=== PATIENT | male | born 1980 | race Caucasian/White ===

== ENCOUNTER → 2017-08-20 08:50 | Outpatient (CLI) | payer OTHER, SELFPAY ==
--- NOTE | 2017-08-20 | DI.US.S_ITS ---
PROCEDURE: US ABDOMEN COMPLETE INDICATIONS: RIGHT UPPER QUADRANT PAIN TECHNIQUE: Real-time scanning was performed of the abdominal and retroperitoneal organs, with image documentation. COMPARISON: None. FINDINGS: Liver: Liver is normal in size and homogeneous in echotexture. Liver has a diffusely increased echotexture which typically represents fatty infiltration; however, finding is nonspecific and other etiologies including hepatic cirrhosis can have a similar appearance. Please correlate with clinical and laboratory findings. Gallbladder: Several small mobile gallstones are noted. No gallbladder wall thickening. No pericholecystic fluid. No sonographic Gutierrez sign. Biliary ducts: Intrahepatic bile ducts are non-dilated. Extrahepatic bile duct caliber measures 5.4 mm. Normal is 6-7 mm or less in diameter, or 10 mm or less post-cholecystectomy. Pancreas: Visualized portions of the pancreas are sonographically normal. Spleen: Spleen is normal in size and homogeneous in echotexture. Kidneys: Kidneys are normal in size and echotexture. Right kidney measures 11.6 cm long; left kidney measures 11.6 cm long. No hydronephrosis or nephrolithiasis. No solid masses. Aorta: Visualized aorta is normal in caliber at less than 3 cm. Iliacs: Proximal common iliac arteries are normal in caliber at less than 2.5 cm. IVC: Intrahepatic inferior vena cava is patent. Miscellaneous: No free abdominal fluid. IMPRESSION: Cholelithiasis without sonographic evidence of cholecystitis. Dictated by: Vanesa Pryor MD, PhD on 08/20/2017 at 9:41 Approved by: Vanesa Pryor MD, PhD on 08/20/2017 at 9:42
== END ==
PROVIDERS: PCP Pediatrics; Visit Provider Internal Medicine Gastroenterology
DX: K80.20 Calculus of gallbladder without cholecystitis without obstruction (principal)
CPT/HCPCS: 76700

== ENCOUNTER → 2018-05-14 07:34 | Outpatient (CLI) | payer OTHER, SELFPAY ==
--- NOTE | 2018-05-14 | DI.RAD.S_ITS ---
PROCEDURE: FL UPPER GI W AIR INDICATIONS: peptic ulcer COMPARISON: None. 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 No suspicious abdominal calcifications. Visualized solid organ contours appear normal. Bony structures appear unremarkable. Esophagus: Esophageal mucosa is normal on air-contrast views. On single-contrast views, there is normal esophageal peristalsis. No strictures, extrinsic mass effects, or diverticula. No hiatal hernia. There was spontaneous gastroesophageal reflux to the level of the middle third of the esophagus. Stomach: The stomach is suboptimally distended although grossly unremarkable. No discrete convincing mucosal masses or ulcers visualized. Pylorus and duodenal bulb appear normal in morphology. Duodenal folds are normal in thickness as well. IMPRESSION: Spontaneous gastroesophageal reflux Dictated by: Kenn Jimenez M.D. on 05/14/2018 at 10:15 Approved by: Kenn Jimenez M.D. on 05/14/2018 at 10:18
== END ==
PROVIDERS: PCP Pediatrics; Visit Provider Physician Assistant
DX: K27.9 Peptic ulcer, site unspecified, unspecified as acute or chronic, without hemorrhage or perforation (principal); K21.9 Gastro-esophageal reflux disease without esophagitis
CPT/HCPCS: 74247

== ENCOUNTER 2022-03-24 11:11 | Emergency (ER) | payer OTHER, SELFPAY ==
[2022-03-24] VITALS (17 sets, daily range): BP systolic 115–154; BP diastolic 58–82; PULSE 67–82; RESP 15–24; TEMP 37; O2SAT 94–99; BMI 30.8
--- NOTE | 2022-03-24 11:21 | DI.RAD.S_ITS ---
PROCEDURE: XR CHEST 2V INDICATIONS: cough, SOB. TECHNIQUE: 2 views of the chest were acquired. COMPARISON: [facility], CR, XR CHEST 2 VIEWS, 04/19/2021, 15:57. FINDINGS: Surgical changes and devices: None. Lungs and pleura: Lungs are clear. No pleural effusions or pneumothorax. Mediastinum: Mediastinal contours are normal. Heart size is normal. Bones and chest wall: No suspicious bony abnormalities. Soft tissues appear unremarkable. IMPRESSION: No evidence acute pulmonary process. Dictated by: Dale Garg M.D. on 03/24/2022 at 11:48 Approved by: Dale Garg M.D. on 03/24/2022 at 11:48
[2022-03-24 12:10] LABS: Influenza A - CEPHEID Flu A NEGATIVE (NEGATIVE); Influenza B - CEPHEID Flu B NEGATIVE (NEGATIVE); Respiratory Syncytial Virus Negative (Negative)
[2022-03-24 12:11] LABS: COVID-19 CEPHEID 4-PLEX PCR Negative (Negative)
--- NOTE | 2022-03-24 12:34 | ED_ITS ---
HPI - SOB/Dyspnea <Bacilio Kitchen PA-C - Last Filed: 03/24/22 18:27> General Chief Complaint: Shortness of Breath/Dyspnea Stated Complaint: shortness of breath, cough, since Thursday Time Seen by Provider: 03/24/22 12:00 History of Present Illness HPI Narrative: 41-year-old male with past medical history asthma, hemorrhoids presents to the ED with 4 days of shortness of breath, cough. Patient states that his symptoms started suddenly with shortness of breath, cough, mild rhinorrhea, substernal chest pain. Pain does not radiate. Patient denies fever, chills, nausea, vomiting, dysuria, hematuria, lightheadedness, dizziness, syncope. Patient does endorse hematochezia and some blood clots which he says happens often since he has internal hemorrhoids. Patient has had a colonoscopy in the past with no acute findings other than internal hemorrhoids. Patient denies cardiac history. Patient denies early cardiac deaths in the family. Patient is a daily smoker, smokes 4-5 cigarettes a day. Patient also smokes marijuana daily. Patient denies alcohol use. Patient denies other recreational drug use. Patient has not used his inhaler since he got sick 4 days ago. Related Data Home Medications Medication Instructions Recorded Confirmed bupropion HCl 150 mg tablet,12 hr 150 mg PO QDAY ##0 10/23/16 sustained-release (Wellbutrin SR) fluticasone propionate 50 intranasal QDAY ##0 10/23/16 mcg/actuation nasal spray,suspension (Flonase Allergy Relief) ibuprofen 800 mg tablet 800 mg PO TIDP PRN ##0 10/23/16 montelukast 10 mg tablet 1 tab PO QDAY ##0 10/23/16 (Singulair) omeprazole 40 mg capsule,delayed 40 mg PO QAM ##0 10/23/16 release Previous Rx's Medication Instructions Recorded albuterol sulfate 90 mcg/actuation 2 puff inhalation Q4-6H PRN 03/24/22 aerosol inhaler shortness of breath or wheezing #8.5 grams azithromycin 250 mg tablet See Rx Instructions PO .COMPLEX #6 03/24/22 (Zithromax Z-Prabhu) tabs prednisone 20 mg tablet 60 mg PO DAILY 5 days #15 tabs 03/24/22 Allergies Allergy/AdvReac Type Severity Reaction Status Date / Time No Known Drug Allergies Allergy Verified 03/24/22 11:20 Review of Systems <Bacilio Kitchen PA-C - Last Filed: 03/24/22 18:27> Review of Systems ROS Unobtainable: All systems reviewed & are unremarkable except as noted in HPI and below Constitutional Constitutional: Denies chills, Reports fatigue, Denies fever(s), Denies frequent falls, Reports lethargy and Denies weakness Eyes Eyes: Denies change in vision, Denies eye discharge, Denies irritation and Denies loss of vision ENT Ears, Nose, Mouth, and Throat: Denies change in voice, Denies dizziness, Denies neck pain, Denies sore throat and Denies throat swelling Cardiovascular Cardiovascular: Reports chest pain, Denies irregular heart rhythm, Denies lightheadedness, Denies palpitations, Reports dyspnea, Denies dyspnea on exertion and Denies orthopnea Respiratory Respiratory: Reports cough, Reports dyspnea, Denies dyspnea on exertion and Reports wheezing Gastrointestinal Gastrointestinal: Denies abdominal pain, Reports hematochezia, Denies change in bowel habits, Denies diarrhea, Denies nausea and Denies vomiting Genitourinary Genitourinary: Denies hematuria, Denies flank pain, Denies urinary incontinence and Denies urinary urgency Musculoskeletal Musculoskeletal: Denies back pain, Denies muscle weakness, Denies neck pain, Denies numbness and Denies tingling Integumentary/Breasts Skin/Breast: Denies pruritus, Denies erythema, Denies rash and Denies wounds Neurologic Neurologic: Denies behavioral changes, Denies confusion, Denies dizziness, Denies frequent falls, Denies loss of vision, Denies numbness, Denies tingling and Denies weakness Psychiatric Psychiatric: Denies anxiety, Denies behavioral changes, Denies confusion, Denies depression, Denies homicidal ideation and Denies suicidal ideation Endocrine Endocrine: Reports fatigue, Denies flushing and Denies palpitations Hematologic/Lymphatic Hematologic/Lymphatic: Denies easy bruising Allergic/Immunologic Allergic/Immunologic: Denies urticaria, Denies throat swelling and Reports wheezing Patient History <Bacilio Kitchen PA-C - Last Filed: 03/24/22 18:27> Social History Smoking Status: Current every day smoker Smoking Status: Current every day smoker tobacco type: cigarettes Substance Use Type: marijuana Exam <Bacilio Kitchen PA-C - Last Filed: 03/24/22 18:27> Narrative Exam Narrative: Const General:?cooperative, healthy appearing and comfortable [facility] Head:?normal to inspection Ears:?hearing grossly normal bilaterally Nose:?external nose normal Face and sinus:?normal facial exam and sinuses nontender Mouth:?oral mucosae normal Throat:?posterior oropharynx normal Eyes General:?appearance normal, both eyes and all related structures Neck Neck:?normal visual inspection and no lymphadenopathy noted Resp Effort & Inspection:?normal respiratory effort Auscultation:? Diffuse bilateral wheezes Cardio Rate:?regular rate Rhythm:?regular rhythm Neuro General:?patient alert, patient awake and patient oriented x3 Initial Vital Signs Initial Vital Signs: Vital Signs Temperature 98.6 F 03/24/22 11:18 Pulse Rate 82 03/24/22 11:18 Respiratory Rate 16 03/24/22 11:18 Blood Pressure 137/69 03/24/22 11:18 Pulse Oximetry 95 03/24/22 11:18 Oxygen Delivery Method 03/24/22 11:18 <Tete Rivera DO - Last Filed: 03/27/22 03:29> Initial Vital Signs Initial Vital Signs: Vital Signs Temperature 98.6 F 03/24/22 11:18 Pulse Rate 82 03/24/22 11:18 Respiratory Rate 16 03/24/22 11:18 Blood Pressure 137/69 03/24/22 11:18 Pulse Oximetry 95 03/24/22 11:18 Oxygen Delivery Method 03/24/22 11:18 Course <Bacilio Kitchen PA-C - Last Filed: 03/24/22 18:27> Orders Ordered: Discontinued Medications Albuterol/Ipratropium (Albuterol/Ipratropium 3 Ml Ampul) 3 ml INH NOW ONE Stop: 03/24/22 12:52 Last Admin: 03/24/22 13:12 Dose: 3 ml Documented By: JESÚS Vital Signs Vital signs: Vital Signs - 8 hr 03/24/22 11:18 03/24/22 12:22 03/24/22 13:13 Temperature 98.6 F Pulse Rate 82 70 72 Respiratory Rate 16 16 Blood Pressure 137/69 129/81 Pulse Oximetry 95 95 95 Oxygen Delivery Method Room Air Room Air Room Air Oxygen Flow Rate 0 Fraction of Inspired Oxygen 21 03/24/22 12:21 03/24/22 12:21 03/24/22 12:30 Temperature Pulse Rate 72 70 Respiratory Rate Blood Pressure 129/81 Pulse Oximetry 96 94 Oxygen Delivery Method Oxygen Flow Rate Fraction of Inspired Oxygen 03/24/22 12:46 03/24/22 12:46 03/24/22 13:00 Temperature Pulse Rate 72 Respiratory Rate 19 Blood Pressure 125/78 118/73 Pulse Oximetry 95 Oxygen Delivery Method Oxygen Flow Rate Fraction of Inspired Oxygen 03/24/22 13:00 03/24/22 13:30 03/24/22 13:30 Temperature Pulse Rate 67 69 Respiratory Rate 18 19 Blood Pressure 125/80 Pulse Oximetry 95 94 Oxygen Delivery Method Oxygen Flow Rate Fraction of Inspired Oxygen 03/24/22 14:00 03/24/22 14:00 03/24/22 14:30 Temperature Pulse Rate 74 Respiratory Rate 18 Blood Pressure 115/58 L 123/78 Pulse Oximetry 95 Oxygen Delivery Method Oxygen Flow Rate Fraction of Inspired Oxygen 03/24/22 14:30 03/24/22 14:50 03/24/22 14:50 Temperature Pulse Rate 73 79 Respiratory Rate 20 24 Blood Pressure 154/76 H Pulse Oximetry 99 99 Oxygen Delivery Method Oxygen Flow Rate Fraction of Inspired Oxygen 03/24/22 15:00 03/24/22 15:00 03/24/22 15:30 Temperature Pulse Rate 74 Respiratory Rate 22 Blood Pressure 139/72 136/82 Pulse Oximetry 98 Oxygen Delivery Method Oxygen Flow Rate Fraction of Inspired Oxygen 03/24/22 15:30 03/24/22 16:00 03/24/22 16:00 Temperature Pulse Rate 69 72 Respiratory Rate 15 20 Blood Pressure 129/79 Pulse Oximetry 97 97 Oxygen Delivery Method Oxygen Flow Rate Fraction of Inspired Oxygen 03/24/22 16:30 03/24/22 16:30 03/24/22 17:00 Temperature Pulse Rate 73 80 Respiratory Rate 20 21 Blood Pressure 134/82 Pulse Oximetry 96 97 Oxygen Delivery Method Oxygen Flow Rate Fraction of Inspired Oxygen 03/24/22 17:19 Temperature Pulse Rate 74 Respiratory Rate 18 Blood Pressure Pulse Oximetry 94 Oxygen Delivery Method Room Air Oxygen Flow Rate Fraction of Inspired Oxygen <Tete Rivera, DO - Last Filed: 03/27/22 03:29> Orders Ordered: Discontinued Medications Albuterol/Ipratropium (Albuterol/Ipratropium 3 Ml Ampul) 3 ml INH NOW ONE Stop: 03/24/22 12:52 Last Admin: 03/24/22 13:12 Dose: 3 ml Documented By: JESÚS Vital Signs Vital signs: Vital Signs - 8 hr 03/24/22 11:18 03/24/22 12:22 03/24/22 13:13 Temperature 98.6 F Pulse Rate 82 70 72 Respiratory Rate 16 16 Blood Pressure 137/69 129/81 Pulse Oximetry 95 95 95 Oxygen Delivery Method Room Air Room Air Room Air Oxygen Flow Rate 0 Fraction of Inspired Oxygen 03/24/22 12:21 03/24/22 12:21 03/24/22 12:30 Temperature Pulse Rate 72 70 Respiratory Rate Blood Pressure 129/81 Pulse Oximetry 96 94 Oxygen Delivery Method Oxygen Flow Rate Fraction of Inspired Oxygen 03/24/22 12:46 03/24/22 12:46 03/24/22 13:00 Temperature Pulse Rate 72 Respiratory Rate 19 Blood Pressure 125/78 118/73 Pulse Oximetry 95 Oxygen Delivery Method Oxygen Flow Rate Fraction of Inspired Oxygen 03/24/22 13:00 03/24/22 13:30 03/24/22 13:30 Temperature Pulse Rate 67 69 Respiratory Rate 18 19 Blood Pressure 125/80 Pulse Oximetry 95 94 Oxygen Delivery Method Oxygen Flow Rate Fraction of Inspired Oxygen 03/24/22 14:00 03/24/22 14:00 03/24/22 14:30 Temperature Pulse Rate 74 Respiratory Rate 18 Blood Pressure 115/58 L 123/78 Pulse Oximetry 95 Oxygen Delivery Method Oxygen Flow Rate Fraction of Inspired Oxygen 03/24/22 14:30 03/24/22 14:50 03/24/22 14:50 Temperature Pulse Rate 73 79 Respiratory Rate 20 24 Blood Pressure 154/76 H Pulse Oximetry 99 99 Oxygen Delivery Method Oxygen Flow Rate Fraction of Inspired Oxygen 03/24/22 15:00 03/24/22 15:00 03/24/22 15:30 Temperature Pulse Rate 74 Respiratory Rate 22 Blood Pressure 139/72 136/82 Pulse Oximetry 98 Oxygen Delivery Method Oxygen Flow Rate Fraction of Inspired Oxygen 03/24/22 15:30 03/24/22 16:00 03/24/22 16:00 Temperature Pulse Rate 69 72 Respiratory Rate 15 20 Blood Pressure 129/79 Pulse Oximetry 97 97 Oxygen Delivery Method Oxygen Flow Rate Fraction of Inspired Oxygen 03/24/22 16:30 03/24/22 16:30 03/24/22 17:00 Temperature Pulse Rate 73 80 Respiratory Rate 20 21 Blood Pressure 134/82 Pulse Oximetry 96 97 Oxygen Delivery Method Oxygen Flow Rate Fraction of Inspired Oxygen 03/24/22 17:19 Temperature Pulse Rate 74 Respiratory Rate 18 Blood Pressure Pulse Oximetry 94 Oxygen Delivery Method Room Air Oxygen Flow Rate Fraction of Inspired Oxygen MDM - SOB/Dyspnea <Bacilio Kitchen PA-C - Last Filed: 03/24/22 18:27> Lab Data 03/24/22 12:30 03/24/22 12:30 Labs: Lab Results 03/24/22 03/24/22 03/24/22 Range/Units 11:22 12:30 12:30 WBC 15.1 H (4.5-11.0) X10^3/uL RBC 5.27 (4.5-5.9) X10^6/uL Hgb 13.7 (13.5-17.5) g/dL Hct 41.6 (41-53) % MCV 79.0 L (80-100) fL MCH 26.0 (26-34) PG MCHC 32.9 (30-36) % RDW 15.6 H (11.6-14.8) % Plt Count 331 (150-400) X10^3/uL Neut % (Auto) Not Reportable Lymph % (Auto) Not Reportable [place] % (Auto) Not Reportable Eos % (Auto) Not Reportable Baso % (Auto) Not Reportable Lymph # (Auto) Not Reportable [place] # (Auto) Not Reportable Baso # (Auto) Not Reportable Total Counted 100 Seg Neutrophils % 38.0 (38-70) % Lymphocytes % (Manual) 30.0 (25-45) % Monocytes % (Manual) 3.0 (2-11) % Eosinophils % (Manual) 29.0 H (2-4) % Neutrophils # (Manual) 5738 (4332-7453) /uL RBC Morphology See below Anisocytosis 1+ H Smear Path Review Sodium 141 (137-145) mmol/L Potassium 4.2 (3.4-5.1) mmol/L Chloride 105 (98-107) mmol/L Carbon Dioxide 25 (22-32) mmol/L BUN 9 (9-20) mg/dL Creatinine 1.07 (0.66-1.25) mg/dL Estimated GFR > 60 (>60) mL/min BUN/Creatinine Ratio 8.4 (6-22) Glucose 102 H (70-100) mg/dL Calcium 8.9 (8.4-10.2) mg/dL Total Bilirubin 0.6 (0.2-1.3) mg/dL AST 25 (17-59) IU/L ALT 41 (<50) IU/L Alkaline Phosphatase 48 (38-126) U/L Total Creatine Kinase 33 L (55-170) U/L CK-MB (CK-2) TNP CK-MB (CK-2) Rel Index TNP Troponin I < 0.012 (0.01-0.034) ng/mL NT-Pro-B Natriuret Pep (<125) pg/mL Total Protein 8.0 (6.3-8.2) g/dL Albumin 4.5 (3.5-5.0) g/dL Globulin 3.5 (1.7-4.1) g/dL Albumin/Globulin Ratio 1.3 (1.0-2.8) Lipase 76 (23-300) U/L SARS-CoV-2 (PCR) Negative (Negative) Influenza A (RT-PCR) Flu a negative (NEGATIVE) Influenza B (RT-PCR) Flu b negative (NEGATIVE) RSV (PCR) Negative (Negative) 03/24/22 Range/Units 12:30 WBC (4.5-11.0) X10^3/uL RBC (4.5-5.9) X10^6/uL Hgb (13.5-17.5) g/dL Hct (41-53) % MCV (80-100) fL MCH (26-34) PG MCHC (30-36) % RDW (11.6-14.8) % Plt Count (150-400) X10^3/uL Neut % (Auto) Lymph % (Auto) [place] % (Auto) Eos % (Auto) Baso % (Auto) Lymph # (Auto) [place] # (Auto) Baso # (Auto) Total Counted Seg Neutrophils % (38-70) % Lymphocytes % (Manual) (25-45) % Monocytes % (Manual) (2-11) % Eosinophils % (Manual) (2-4) % Neutrophils # (Manual) (0692-2148) /uL RBC Morphology Anisocytosis Smear Path Review Sodium (137-145) mmol/L Potassium (3.4-5.1) mmol/L Chloride (98-107) mmol/L Carbon Dioxide (22-32) mmol/L BUN (9-20) mg/dL Creatinine (0.66-1.25) mg/dL Estimated GFR (>60) mL/min BUN/Creatinine Ratio (6-22) Glucose (70-100) mg/dL Calcium (8.4-10.2) mg/dL Total Bilirubin (0.2-1.3) mg/dL AST (17-59) IU/L ALT (<50) IU/L Alkaline Phosphatase (38-126) U/L Total Creatine Kinase (55-170) U/L CK-MB (CK-2) CK-MB (CK-2) Rel Index Troponin I (0.01-0.034) ng/mL NT-Pro-B Natriuret Pep 16 (<125) pg/mL Total Protein (6.3-8.2) g/dL Albumin (3.5-5.0) g/dL Globulin (1.7-4.1) g/dL Albumin/Globulin Ratio (1.0-2.8) Lipase (23-300) U/L SARS-CoV-2 (PCR) (Negative) Influenza A (RT-PCR) (NEGATIVE) Influenza B (RT-PCR) (NEGATIVE) RSV (PCR) (Negative) MDM Narrative Medical decision making narrative: 41-year-old male with past medical history asthma, hemorrhoids presents to the ED with 4 days of shortness of breath, cough. Concern for viral URI versus asthma exacerbation versus ACS versus CHF versus anemia. Unlikely PE, given patient's history and symptoms. Will obtain chest x-ray, EKG, labs, troponin, BNP, respiratory swab. Given diffuse bilateral wheezing, will treat with albuterol/ipratropium. Will reassess. EKG without acute findings, normal sinus rhythm, no axis deviation, no acute ST- T changes. Labs show anisocytosis, white count elevated to 15, 29% eosinophilia. Will obtain CT chest, abdomen, pelvis to check for organ involvement for the etiology of the eosinophilia. Consider asthma exacerbation versus autoimmune disease versus allergy versus medication reaction versus autoimmune disease versus parasitic infection versus malignancy. CT shows mild patchy ground-glass opacity in the lungs, small pulmonary nodules, 1 of which has grown in size since 2017. CT also shows a small liver lesion that is not completely characterized, and will need further imaging. Discussed findings with patient. Will treat the ground-glass opacity as potential pneumonia, given patient's URI symptoms, will prescribe antibiotics. Patient also will be treated for a asthma exacerbation with albuterol and prednisone. Patient agrees to follow-up with his PCP for further evaluation of the abnormal labs and CT. Patient states that he has had a past history of elevated blood co unts with unknown etiology, has had bone marrow biopsies with no findings. ED return precautions were discussed with patient. Patient verbalized understanding. ? Medical records reviewed:??yes ? Exam documented above, pertinent findings include:? Diffuse bilateral wheezing ? Disposition: see below, along with detailed discharge instructions that have been reviewed with patient as well as indications for ED re-evaluation and additional outpatient follow up <Tete Rivera, DO - Last Filed: 03/27/22 03:29> Lab Data Labs: Lab Results 03/24/22 03/24/22 03/24/22 Range/Units 11:22 12:30 12:30 WBC 15.1 H (4.5-11.0) X10^3/uL RBC 5.27 (4.5-5.9) X10^6/uL Hgb 13.7 (13.5-17.5) g/dL Hct 41.6 (41-53) % MCV 79.0 L (80-100) fL MCH 26.0 (26-34) PG MCHC 32.9 (30-36) % RDW 15.6 H (11.6-14.8) % Plt Count 331 (150-400) X10^3/uL Neut % (Auto) Not Reportable Lymph % (Auto) Not Reportable [place] % (Auto) Not Reportable Eos % (Auto) Not Reportable Baso % (Auto) Not Reportable Lymph # (Auto) Not Reportable [place] # (Auto) Not Reportable Baso # (Auto) Not Reportable Total Counted 100 Seg Neutrophils % 38.0 (38-70) % Lymphocytes % (Manual) 30.0 (25-45) % Monocytes % (Manual) 3.0 (2-11) % Eosinophils % (Manual) 29.0 H (2-4) % Neutrophils # (Manual) 5738 (1613-4536) /uL RBC Morphology See below Anisocytosis 1+ H Smear Path Review Sodium 141 (137-145) mmol/L Potassium 4.2 (3.4-5.1) mmol/L Chloride 105 (98-107) mmol/L Carbon Dioxide 25 (22-32) mmol/L BUN 9 (9-20) mg/dL Creatinine 1.07 (0.66-1.25) mg/dL Estimated GFR > 60 (>60) mL/min BUN/Creatinine Ratio 8.4 (6-22) Glucose 102 H (70-100) mg/dL Calcium 8.9 (8.4-10.2) mg/dL Total Bilirubin 0.6 (0.2-1.3) mg/dL AST 25 (17-59) IU/L ALT 41 (<50) IU/L Alkaline Phosphatase 48 (38-126) U/L Total Creatine Kinase 33 L (55-170) U/L CK-MB (CK-2) TNP CK-MB (CK-2) Rel Index TNP Troponin I < 0.012 (0.01-0.034) ng/mL NT-Pro-B Natriuret Pep (<125) pg/mL Total Protein 8.0 (6.3-8.2) g/dL Albumin 4.5 (3.5-5.0) g/dL Globulin 3.5 (1.7-4.1) g/dL Albumin/Globulin Ratio 1.3 (1.0-2.8) Lipase 76 (23-300) U/L SARS-CoV-2 (PCR) Negative (Negative) Influenza A (RT-PCR) Flu a negative (NEGATIVE) Influenza B (RT-PCR) Flu b negative (NEGATIVE) RSV (PCR) Negative (Negative) 03/24/22 Range/Units 12:30 WBC (4.5-11.0) X10^3/uL RBC (4.5-5.9) X10^6/uL Hgb (13.5-17.5) g/dL Hct (41-53) % MCV (80-100) fL MCH (26-34) PG MCHC (30-36) % RDW (11.6-14.8) % Plt Count (150-400) X10^3/uL Neut % (Auto) Lymph % (Auto) [place] % (Auto) Eos % (Auto) Baso % (Auto) Lymph # (Auto) [place] # (Auto) Baso # (Auto) Total Counted Seg Neutrophils % (38-70) % Lymphocytes % (Manual) (25-45) % Monocytes % (Manual) (2-11) % Eosinophils % (Manual) (2-4) % Neutrophils # (Manual) (0555-9759) /uL RBC Morphology Anisocytosis Smear Path Review Sodium (137-145) mmol/L Potassium (3.4-5.1) mmol/L Chloride (98-107) mmol/L Carbon Dioxide (22-32) mmol/L BUN (9-20) mg/dL Creatinine (0.66-1.25) mg/dL Estimated GFR (>60) mL/min BUN/Creatinine Ratio (6-22) Glucose (70-100) mg/dL Calcium (8.4-10.2) mg/dL Total Bilirubin (0.2-1.3) mg/dL AST (17-59) IU/L ALT (<50) IU/L Alkaline Phosphatase (38-126) U/L Total Creatine Kinase (55-170) U/L CK-MB (CK-2) CK-MB (CK-2) Rel Index Troponin I (0.01-0.034) ng/mL NT-Pro-B Natriuret Pep 16 (<125) pg/mL Total Protein (6.3-8.2) g/dL Albumin (3.5-5.0) g/dL Globulin (1.7-4.1) g/dL Albumin/Globulin Ratio (1.0-2.8) Lipase (23-300) U/L SARS-CoV-2 (PCR) (Negative) Influenza A (RT-PCR) (NEGATIVE) Influenza B (RT-PCR) (NEGATIVE) RSV (PCR) (Negative) ECG Data Interpretation: Miguel- Normal sinus rhythm rate 68 WI interval 144 QRS [address] changes no priors to compare Discharge Plan Departure Patient Disposition: Home Clinical Impression: Shortness of breath Instructions: DI for Shortness of Breath Activity Restrictions/Additional Instructions: You were evaluated in the ED today for cough and shortness of breath. Your EKG was normal. Your labs showed a 29% eosinophilia which is significantly elevated, along with an elevated white count of 15, anisocytosis. Your CT chest abdomen pelvis shows ground-glass opacity in the lungs as well as small pulmonary nodules. One of the pulmonary nodules appears to have increased in size compared to 2017. There is also a small lesion in the liver that was not well characterized in the CT and will need further imaging and evaluation. They can be several causes of elevated eosinophils, including asthma exacerbation, allergies, autoimmune diseases, parasitic infections, cancers. Please follow-up with your primary care doctor as soon as possible for further monitoring and evaluation. You are being prescribed an albuterol inhaler and steroids for a asthma exacerbation as well as antibiotics for a possible pneumonia that might b e causing the ground-glass opacities. Please return to the ED if you have worsening chest pain or shortness of breath. Prescriptions: New prednisone 20 mg tablet 60 mg PO DAILY 5 Days Qty: 15 0RF albuterol sulfate 90 mcg/actuation HFA aerosol inhaler 2 puff inhalation Q4-6H PRN (Reason: shortness of breath or wheezing) Qty: 8.5 0RF azithromycin [Zithromax Z-Prabhu] 250 mg tablet See Rx Instructions .ROUTE .COMPLEX Qty: 6 0RF Rx Instructions: For 250 mg dose pack: take 500 mg today (day 1), then 250 mg for 4 days (days 2-5) No Action bupropion HCl [Wellbutrin SR] 150 MG tablet extended release 12 hr 150 mg PO QDAY Qty: 0 omeprazole 40 MG capsule,delayed release(DR/EC) 40 mg PO QAM Qty: 0 montelukast [Singulair] 10 mg tablet 1 tab PO QDAY Qty: 0 fluticasone propionate [Flonase Allergy Relief] 50 mcg/actuation spray,suspension Intranasal QDAY Qty: 0 ibuprofen 800 MG tablet 800 mg PO TIDP PRNQty: 0 Referrals: Jennifer Du MD [Primary Care Provider] - Stand Alone Forms: Patient Portal/API <Tete Rivera DO - Last Filed: 03/27/22 03:29> Cosign ED Attending Wilson[place] Attestation: I was immediately available in the department for consultation. Documentation has been reviewed.
[2022-03-24 12:59] LABS: Alanine Aminotransferase 41 IU/L (<50); Albumin 4.5 g/dL (3.5-5.0); Albumin Globulin Ratio 1.3 (1.0-2.8); Alkaline Phosphatase 48 U/L (38-126); Aspartate Aminotransferase 25 IU/L (17-59); BUN Creatinine Ratio 8.4 (6-22); Bilirubin Total 0.6 mg/dL (0.2-1.3); Blood Urea Nitrogen 9 mg/dL (9-20); Calcium 8.9 mg/dL (8.4-10.2); Carbon Dioxide 25 mmol/L (22-32); Chloride 105 mmol/L (98-107); Creatine Kinase 33 U/L (55-170); Estimated Glomerular Filt Rate > 60 mL/min (>60); Globulin 3.5 g/dL (1.7-4.1); Glucose 102 mg/dL (70-100); HEMOLYSIS < 15 (0-50); Lipase 76 U/L (23-300); Potassium 4.2 mmol/L (3.4-5.1); Sodium 141 mmol/L (137-145)
[2022-03-24 13:11] LABS: Troponin I < 0.012 ng/mL (0.01-0.034)
[2022-03-24] MEDS: ALBUTEROL/IPRATROPIUM 3 ML AMPUL INH (13:12)
[2022-03-24 13:17] LABS: Hematocrit 41.6 % (41-53); Hemoglobin 13.7 g/dL (13.5-17.5); Mean Corpuscular HGB Conc 32.9 % (30-36); Platelet Count 331 X10^3/uL (150-400); Red Blood Cell Count 5.27 X10^6/uL (4.5-5.9); Red Cell Distribution Width 15.6 % (11.6-14.8); White Blood Cell Count 15.1 X10^3/uL (4.5-11.0)
[2022-03-24 13:18] LABS: Add Manual Diff / Slide Review YES
[2022-03-24 13:36] LABS: Neutrophils Absolute Manual 5738 /uL (3000-5900); Total Cells Counted 100
[2022-03-24 13:37] LABS: Anisocytosis 1+
[2022-03-24 14:14] LABS: NT-proBNP (BNP-Adult 18+) 16 pg/mL (<125)
--- NOTE | 2022-03-24 14:36 | DI.CT.S_ITS ---
PROCEDURE: CT CHEST ABD PEL W CON INDICATIONS: RLQ pain, hematochezia, eosinophilia TECHNIQUE: After the administration of oral and intravenous contrast, axial sections acquired from the supraclavicular neck to the pubic symphysis. Coronal and sagittal reformats were performed. For radiation dose reduction, the following was used: automated exposure control, adjustment of mA and/or kV according to patient size. COMPARISON: [facility], CT, CHEST/ABD/PEL WITH CONTRAST, 10/31/2016, 11:59. FINDINGS: Image quality: Excellent. CHEST: Lower Neck: No enlarged lymph nodes. Thyroid: Within normal limits. Axillae: No enlarged lymph nodes. Chest Wall: Unremarkable. Lungs and Airways: A few small pulmonary nodules. For example: -Right major fissure pulmonary nodule measuring 1 cm, (3/155), remotely 0.6 cm in 2017. -Left lower lobe pulmonary nodule measuring 0.5 cm, (3/245), previously 0.4 cm. Patchy ground-glass opacity bilaterally. No consolidation. The central airways are clear. Pleura: Trace pleural fluid at the left lung base. No pneumothorax. Heart: Heart size is normal. No pericardial effusion. Thoracic Vessels: The aorta and pulmonary arteries demonstrate normal size. Mediastinum and Kelly: No enlarged lymph nodes. Esophagus: No wall thickening. No hiatal hernia. ABDOMEN: Liver: Enhancing foci in segment 7 x2 and segment 6 at the tip. Hepatic steatosis. Gallbladder: Absent. Biliary ducts: Unremarkable. Pancreas: Unremarkable. Spleen: Unremarkable. Adrenal Glands: Unremarkable. Kidneys and Ureters: No hydronephrosis. Stomach and Bowel: Stomach, small bowel loops, and colon are unremarkable. A few colonic diverticuli. Normal appendix. Peritoneum: No abnormal intraperitoneal fluid. No free air. Ventral Wall: No hernia. Abdominal Nodes: No retroperitoneal or mesenteric adenopathy by size criteria. Vessels: Aorta and inferior vena cava are normal in size. PELVIS: Pelvic Organs: Prominent prostate gland. Bladder: Decompressed. Pelvic Nodes: No enlarged lymph nodes. Miscellaneous: No inguinal hernias are seen. Bones: No suspicious focal lesion. IMPRESSION: 1. Mild patchy ground-glass opacity in the lungs. 2. No acute inflammatory process in the abdomen or pelvis. No free fluid. Normal appendix. 3. Small pulmonary nodules. Right major fissure nodule measuring 1 cm appears mildly increased compared to 2017. Recommend short-term follow-up CT chest. PET/CT could also be considered for further evaluation. 4. Small enhancing foci in the liver. These could represent perfusion abnormalities/ELLE. If clinically indicated multiphase liver CT or MRI could be used for further evaluation to exclude neoplasm. Dictated by: Ubaldo Leone M.D. on 03/24/2022 at 15:31 Approved by: Ubaldo Leone M.D. on 03/24/2022 at 15:58
== END 2022-03-24 17:23 | disposition home or self-care (01) ==
PROVIDERS: Emergency Medicine; Emergency Provider Student in an Organized Health Care Education/Training Program; PCP Pediatrics
DX: R06.02 Shortness of breath (principal); R07.9 Chest pain, unspecified; R05.9 Cough, unspecified; Z20.822 Contact with and (suspected) exposure to COVID-19
CPT/HCPCS: 0241U; 71046; 71260; 74177; 80053; 82550; 83690; 83880; 84484; 85007; 85025; 93005; 94640; 99283; 99284; Q9967

== ENCOUNTER 2022-05-12 18:19 | Emergency (ER) | payer OTHER, SELFPAY ==
[2022-05-12] VITALS (9 sets, daily range): BP systolic 138–160; BP diastolic 79–92; PULSE 88–103; RESP 18; TEMP 36.8; O2SAT 90–93; BMI 30.1
--- NOTE | 2022-05-12 19:05 | DI.RAD.S_ITS ---
PROCEDURE: XR CHEST 1V INDICATIONS: chest pain TECHNIQUE: One view of the chest was acquired. COMPARISON: [facility], CR, XR CHEST 2V, 03/24/2022, 11:19. FINDINGS: Surgical changes and devices: None. Lungs and pleura: Lungs are clear. No pleural effusions or pneumothorax. Mediastinum: Mediastinal contours appear normal. Heart size is normal. Bones and chest wall: No suspicious bony lesions. Overlying soft tissues appear unremarkable. IMPRESSION: No acute cardiopulmonary pathology. Dictated by: Errol Nolan M.D. on 05/12/2022 at 19:18 Approved by: Errol Nolan M.D. on 05/12/2022 at 19:19
[2022-05-12 20:52] LABS: Add Manual Diff / Slide Review NO; Basophils Absolute Auto 100 /uL (0-100); Basophils Percent Auto 0.8 % (0-2); Eosinophils Absolute Auto 3000 /uL (0-450); Eosinophils Percent Auto 16.5 % (2-4); Hematocrit 41.9 % (41-53); Hemoglobin 13.9 g/dL (13.5-17.5); INR 1.1 (0.9-1.3); Lymphocytes Absolute Auto 3100 /uL (1100-4500); Lymphocytes Percent Auto 17.3 % (25-40); Mean Corpuscular HGB Conc 33.1 % (30-36); Mean Corpuscular Volume 78.3 fL (80-100); Monocytes Absolute Auto 1300 /uL (0-900); Neutrophils Absolute Auto 10600 /uL (1500-7000); Neutrophils Percent Auto 58.4 % (50-75); Platelet Count 298 X10^3/uL (150-400); Prothrombin Time 12.5 SECONDS (10.1-12.7); Red Blood Cell Count 5.35 X10^6/uL (4.5-5.9); Red Cell Distribution Width 15.5 % (11.6-14.8); White Blood Cell Count 18.1 X10^3/uL (4.5-11.0)
[2022-05-12 20:54] LABS: D Dimer 510 ng/ml (<500)
[2022-05-12 20:55] LABS: PTT Partial Thromboplastin Tim 29 SECONDS (26-36)
[2022-05-12 20:58] LABS: Alanine Aminotransferase 32 IU/L (<50); Albumin 4.6 g/dL (3.5-5.0); Albumin Globulin Ratio 1.3 (1.0-2.8); Alkaline Phosphatase 57 U/L (38-126); Aspartate Aminotransferase 23 IU/L (17-59); Bilirubin Total 0.5 mg/dL (0.2-1.3); Blood Urea Nitrogen 8 mg/dL (9-20); Calcium 8.9 mg/dL (8.4-10.2); Carbon Dioxide 26 mmol/L (22-32); Chloride 100 mmol/L (98-107); Creatine Kinase 32 U/L (55-170); Estimated Glomerular Filt Rate > 60 mL/min (>60); Globulin 3.5 g/dL (1.7-4.1); Glucose 94 mg/dL (70-100); HEMOLYSIS < 15 (0-50); Lipase 52 U/L (23-300); Potassium 3.9 mmol/L (3.4-5.1); Sodium 137 mmol/L (137-145); Total Protein 8.1 g/dL (6.3-8.2)
[2022-05-12 21:08] LABS: Troponin I < 0.012 ng/mL (0.01-0.034)
--- NOTE | 2022-05-12 22:49 | ED_ITS ---
HPI - SOB/Dyspnea General Chief Complaint: Shortness of Breath/Dyspnea Stated Complaint: sob Time Seen by Provider: 05/12/22 22:49 History of Present Illness HPI Narrative: Patient is a 42-year-old male sure of asthma presenting today with shortness of breath and cough. He reports that he was seeing his end of March for something similar this is only gotten worse he is not really had fever chills no abdominal pain nausea or vomiting. Sometimes he feels like his chest is tight. He denies any real orthopnea some dyspnea with exertion. Patient reports that at home he had low O2 [id number]%, at rest, having worsening shortness of breath. He has been losing weight over last few months as well about 10-15 lb. Related Data Home Medications Medication Instructions Recorded Confirmed bupropion HCl 150 mg tablet,12 hr 150 mg PO QDAY ##0 10/23/16 sustained-release (Wellbutrin SR) fluticasone propionate 50 intranasal QDAY ##0 10/23/16 mcg/actuation nasal spray,suspension (Flonase Allergy Relief) ibuprofen 800 mg tablet 800 mg PO TIDP PRN ##0 10/23/16 montelukast 10 mg tablet 1 tab PO QDAY ##0 10/23/16 (Singulair) omeprazole 40 mg capsule,delayed 40 mg PO QAM ##0 10/23/16 release Previous Rx's Medication Instructions Recorded albuterol sulfate 90 mcg/actuation 2 puff inhalation Q4-6H PRN 03/24/22 aerosol inhaler shortness of breath or wheezing #8.5 grams azithromycin 250 mg tablet See Rx Instructions PO .COMPLEX #6 03/24/22 (Zithromax Z-Prabhu) tabs amoxicillin 500 mg capsule 1,000 mg PO TID 5 days #30 caps 05/13/22 doxycycline hyclate 100 mg capsule 100 mg PO BID #10 caps 05/13/22 prednisone 10 mg tablet 10 mg PO DAILY #30 tabs 05/13/22 Allergies Allergy/AdvReac Type Severity Reaction Status Date / Time No Known Drug Allergies Allergy Verified 03/24/22 11:20 Review of Systems Review of Systems ROS Unobtainable: All systems reviewed & are unremarkable except as noted in HPI and below Patient History Social History Smoking Status: Current every day smoker Smoking Status: Current every day smoker tobacco type: cigarettes Substance Use Type: marijuana Exam Initial Vital Signs Initial Vital Signs: Vital Signs Temperature 98.3 F 05/12/22 18:39 Pulse Rate 103 H 05/12/22 18:39 Respiratory Rate 18 05/12/22 18:39 Blood Pressure 160/79 H 05/12/22 18:39 Pulse Oximetry 92 05/12/22 18:39 Oxygen Delivery Method Room Air 05/12/22 18:39 GENERAL: Alert 42-year-old no acute distress HEENT: Head atraumatic,EOMI, pupils reactive, face symmetric, moist mucous membranes CARDIOVASCULAR: Regular rate and rhythm without murmurs, rubs or gallops. RESPIRATORY: Wheezing and coarse bilaterally no conversational dyspnea ABDOMEN: Soft, nontender. Normoactive bowel sounds all 4 quadrants. No guarding or rebound. EXTREMITIES: Normal range of motion, no clubbing or edema. Neurovascularly intact NEUROLOGICAL: Alert and oriented x4.Normal gait and speech. SKIN: Warm, dry, no laceration, no petechiae, no rashes or lesions. Course Orders Ordered: ED Orders 05/12/22 22:58 CT angio chest PE protocol Stat 05/13/22 00:15 Covid-19 + FLU A/B + RSV - PCR Stat Discontinued Medications Albuterol (Albuterol 2.5 Mg/3 Ml Neb (Adult)) 5 mg INH NOW ONE Stop: 05/13/22 02:12 Last Admin: 05/13/22 02:14 Dose: 5 mg Documented By: [email or web address] Albuterol/Ipratropium (Albuterol/Ipratropium 3 Ml Ampul) 3 ml INH NOW ONE Stop: 05/12/22 23:40 Last Admin: 05/13/22 00:00 Dose: 3 ml Documented By: [email or web address] Methylprednisolone (Methylprednisolone 125 Mg/2 Ml Vial) 125 mg IV NOW ONE Stop: 05/12/22 23:40 Last Admin: 05/13/22 00:20 Dose: 125 mg Documented By: NIC Vital Signs Vital signs: Vital Signs - 8 hr 05/13/22 00:00 05/12/22 23:33 05/13/22 00:00 Temperature Pulse Rate 90 91 H 88 Respiratory Rate 18 Blood Pressure Pulse Oximetry 91 93 91 Oxygen Delivery Method Room Air Oxygen Flow Rate 0 Fraction of Inspired Oxygen 21 05/13/22 02:14 05/13/22 00:30 05/13/22 01:00 Temperature Pulse Rate 90 84 81 Respiratory Rate 20 Blood Pressure Pulse Oximetry 89 L 92 91 Oxygen Delivery Method Room Air Oxygen Flow Rate 0 Fraction of Inspired Oxygen 21 05/13/22 01:30 05/13/22 02:00 05/13/22 02:30 Temperature Pulse Rate 83 79 88 Respiratory Rate Blood Pressure Pulse Oximetry 89 L 89 L 97 Oxygen Delivery Method Oxygen Flow Rate Fraction of Inspired Oxygen 05/13/22 02:50 Temperature 98.2 F Pulse Rate 110 H Respiratory Rate 22 Blood Pressure 135/83 Pulse Oximetry 96 Oxygen Delivery Method Room Air Oxygen Flow Rate Fraction of Inspired Oxygen MDM - SOB/Dyspnea Lab Data 05/12/22 20:30 05/12/22 20:30 Labs: Lab Results 05/12/22 05/12/22 05/12/22 Range/Units 20:30 20:30 20:30 WBC 18.1 H (4.5-11.0) X10^3/uL RBC 5.35 (4.5-5.9) X10^6/uL Hgb 13.9 (13.5-17.5) g/dL Hct 41.9 (41-53) % MCV 78.3 L (80-100) fL MCH 26.0 (26-34) PG MCHC 33.1 (30-36) % RDW 15.5 H (11.6-14.8) % Plt Count 298 (150-400) X10^3/uL Neut % (Auto) 58.4 (50-75) % Lymph % (Auto) 17.3 L (25-40) % [place] % (Auto) 7.0 (3-14) % Eos % (Auto) 16.5 H (2-4) % Baso % (Auto) 0.8 (0-2) % Neut # (Auto) 47793 H (9186-8621) /uL Lymph # (Auto) 3100 (0298-8092) /uL [place] # (Auto) 1300 H (0-900) /uL Eos # (Auto) 3000 H (0-450) /uL Baso # (Auto) 100 (0-100) /uL PT 12.5 (10.1-12.7) SECONDS INR 1.1 (0.9-1.3) APTT 29 (26-36) SECONDS D-Dimer 510 H (<500) ng/ml Sodium 137 (137-145) mmol/L Potassium 3.9 (3.4-5.1) mmol/L Chloride 100 (98-107) mmol/L Carbon Dioxide 26 (22-32) mmol/L BUN 8 L (9-20) mg/dL Creatinine 1.15 (0.66-1.25) mg/dL Estimated GFR > 60 (>60) mL/min BUN/Creatinine Ratio 7.0 (6-22) Glucose 94 (70-100) mg/dL Calcium 8.9 (8.4-10.2) mg/dL Magnesium 2.0 (1.6-2.3) mg/dL Total Bilirubin 0.5 (0.2-1.3) mg/dL AST 23 (17-59) IU/L ALT 32 (<50) IU/L Alkaline Phosphatase 57 (38-126) U/L Total Creatine Kinase 32 L (55-170) U/L CK-MB (CK-2) TNP CK-MB (CK-2) Rel Index TNP Troponin I < 0.012 (0.01-0.034) ng/mL NT-Pro-B Natriuret Pep (<125) pg/mL Total Protein 8.1 (6.3-8.2) g/dL Albumin 4.6 (3.5-5.0) g/dL Globulin 3.5 (1.7-4.1) g/dL Albumin/Globulin Ratio 1.3 (1.0-2.8) Lipase 52 (23-300) U/L SARS-CoV-2 (PCR) (Negative) Influenza A (RT-PCR) (NEGATIVE) Influenza B (RT-PCR) (NEGATIVE) RSV (PCR) (Negative) 05/12/22 05/13/22 Range/Units 20:30 00:15 WBC (4.5-11.0) X10^3/uL RBC (4.5-5.9) X10^6/uL Hgb (13.5-17.5) g/dL Hct (41-53) % MCV (80-100) fL MCH (26-34) PG MCHC (30-36) % RDW (11.6-14.8) % Plt Count (150-400) X10^3/uL Neut % (Auto) (50-75) % Lymph % (Auto) (25-40) % [place] % (Auto) (3-14) % Eos % (Auto) (2-4) % Baso % (Auto) (0-2) % Neut # (Auto) (3478-2068) /uL Lymph # (Auto) (3664-6148) /uL [place] # (Auto) (0-900) /uL Eos # (Auto) (0-450) /uL Baso # (Auto) (0-100) /uL PT (10.1-12.7) SECONDS INR (0.9-1.3) APTT (26-36) SECONDS D-Dimer (<500) ng/ml Sodium (137-145) mmol/L Potassium (3.4-5.1) mmol/L Chloride (98-107) mmol/L Carbon Dioxide (22-32) mmol/L BUN (9-20) mg/dL Creatinine (0.66-1.25) mg/dL Estimated GFR (>60) mL/min BUN/Creatinine Ratio (6-22) Glucose (70-100) mg/dL Calcium (8.4-10.2) mg/dL Magnesium (1.6-2.3) mg/dL Total Bilirubin (0.2-1.3) mg/dL AST (17-59) IU/L ALT (<50) IU/L Alkaline Phosphatase (38-126) U/L Total Creatine Kinase (55-170) U/L CK-MB (CK-2) CK-MB (CK-2) Rel Index Troponin I (0.01-0.034) ng/mL NT-Pro-B Natriuret Pep < 11 (<125) pg/mL Total Protein (6.3-8.2) g/dL Albumin (3.5-5.0) g/dL Globulin (1.7-4.1) g/dL Albumin/Globulin Ratio (1.0-2.8) Lipase (23-300) U/L SARS-CoV-2 (PCR) Negative (Negative) Influenza A (RT-PCR) Flu a negative (NEGATIVE) Influenza B (RT-PCR) Flu b negative (NEGATIVE) RSV (PCR) Negative (Negative) Imaging Data Chest x-ray: Radiologist's Impression: PROCEDURE:? XR CHEST 1V ? INDICATIONS:? chest pain ? TECHNIQUE:? One view of the chest was acquired.? ? COMPARISON:? [facility], CR, XR CHEST 2V, 03/24/2022, 11:19. ? FINDINGS:? ? Surgical changes and devices:? None.? ? Lungs and pleura:? Lungs are clear.? No pleural effusions or pneumothorax.? ? Mediastinum:? Mediastinal contours appear normal.? Heart size is normal.? ? Bones and chest wall:? No suspicious bony lesions.? Overlying soft tissues appear unremarkable.? ? IMPRESSION:? No acute cardiopulmonary pathology. ? ? Dictated by: Errol Nolan M.D. on 05/12/2022 at 19:18 ? ? Approved by: Errol Nolan M.D. on 05/12/2022 at 19:19 ? CT scan - chest: Radiologist's Impression: PROCEDURE:? CT ANGIO CHEST PE PROTOCOL ? INDICATIONS:? sob and hypoxia ? TECHNIQUE:? After the administration of intravenous contrast, 2 mm thick sections acquired from the pulmonary apices to the posterior costophrenic angles.? 3-dimensional maximum intensity projection (MIP) coronal and sagittal reformats were then acquired through the thorax.? For radiation dose reduction, the following was used:? automated exposure control, adjustment of mA and/or kV according to patient size.? ? COMPARISON:? [facility], CT, CT CHEST ABD PEL W CON, 03/24/2022, 14:43. ? FINDINGS:? Image quality:? Excellent.? ? Pulmonary arteries:? Pulmonary arteries are normal in size, and demonstrate no intraluminal filling defects to suggest central pulmonary embolism.? Evaluation of distal subsegmental pulmonary arteries limited by suboptimal contrast opacification.? ? Lower Neck: No lymphadenopathy by size criteria. Thyroid:? Visualized thyroid demonstrates no discrete nodules. Axillae: No lymphadenopathy by size criteria. Chest Wall:? Unremarkable.? Bones: Visualized osseous structures demonstrate no suspicious lesions. ? Lungs and Airways:? There are new patchy irregular areas of ground-glass opacity and septal thickening demonstrated bilaterally predominantly within the upper lobes.? Milder areas of indistinct ground-glass opacity are also redemonstrated within the lower lobes and right middle lobe, slightly increased from the prior study.? The trachea and central airways are patent.? There are a few scattered foci of mucous plugging with a lower lobe predominance. Pleura: No pneumothorax or pleural effusions.? ? Heart: Heart size is normal.? No pericardial effusion. Thoracic Vessels: The thoracic aorta is normal in size.? Mediastinum and Kelly: No lymphadenopathy by size criteria. Esophagus: No wall thickening. No hiatal hernia. ? Abdomen:? Visualized upper abdominal solid organs appear normal in the early arterial phase of enhancement.? ? IMPRESSION:? ? 1. No evidence of central pulmonary embolism, with evaluation of subsegmental pulmonary arteries limited by motion artifact. ? 2. Multiple new patchy bilateral ground-glass opacities with associated septal thickening the findings are nonspecific but likely represent multifocal pneumonia from atypical etiologies.? The differential includes an inflammatory process such as hypersensitivity pneumonitis.? ? ? Dictated by: Wilberto Schaefer M.D. on 05/13/2022 at 0:34 ? ? ECG Data Interpretation: Sinus rhythm rate 88 NV interval 158 QRS [address] changes no T-wave inversions MDM Narrative Medical decision making narrative: Patient 42-year-old male history of asthma presenting today with increasing shortness of breath ongoing for the last couple of weeks. Reports that he did not use to have problems with breathing or asthma however seems to be getting much worse. He does have some leukocytosis of 18, electrolytes are within normal limits negative troponin negative BNP, D-dimer is just above normal limits. CT angio is done due to mild hypoxia ongoing shortness of breath it is negative for pulmonary embolism but positive for some ground-glass opacities. He is afebrile really not having productive cough however will treat him for pneumonia was worsening leukocytosis. He is given a couple albuterol treatments here in the ED along with steroids. Likely asthma exacerbation. Patient ambulated in the ED. Heart rate does go up O2 sat does decreased some. The patient reports only feeling minimally better. We discussed admission to the hospital for ongoing nebulizer treatments and IV steroids. However at this time he would like to go home return as needed. He has a pulse oximeter at home so he can continue to monitor. He does not need any more albuterol he actually has Combivent at home as well. Discharge Plan Departure Patient Disposition: Home Clinical Impression: Asthma with exacerbation, Atypical pneumonia Instructions: Asthma -- Adult, DI for Atypical Pneumonia Activity Restrictions/Additional Instructions: *You have been diagnosed with atypical pneumonia, asthma *What to do: Rest and hydrate. Please monitor your oxygen if it is persistently 88-91% please return to the emergency department. *Continue to take medications as directed--> SENT TO [facility] Prednisone 40 mg for 3 days, 30 mg for 3 days, 20 mg for 3 days, 10 mg for 3 days Amoxicillin 1000 mg 3 times a day for 5 days Doxycycline 100 mg twice a day for 5 days Albuterol or Combivent every 4 hours *Follow up with your primary care provider in 2-3 days or call [phone] *Return to ER if you should have needing increasing shortness of breath low oxygen levels, chest pain chest tightness needing albuterol more frequently than prescribed or any new, worsening or concerning symptoms Prescriptions: New amoxicillin 500 mg capsule 1,000 mg PO TID 5 Days Qty: 30 0RF prednisone 10 mg tablet 10 mg PO DAILY Qty: 30 0RF Rx Instructions: day 1-3: 40 mg once a day day 4-6: 30 mg once a day day 7-9: 20 mg once a day day 10-12: 10 mg once a day doxycycline hyclate 100 mg capsule 100 mg PO BID Qty: 10 0RF No Action bupropion HCl [Wellbutrin SR] 150 MG tablet extended release 12 hr 150 mg PO QDAY Qty: 0 omeprazole 40 MG capsule,delayed release(DR/EC) 40 mg PO QAM Qty: 0 montelukast [Singulair] 10 mg tablet 1 tab PO QDAY Qty: 0 fluticasone propionate [Flonase Allergy Relief] 50 mcg/actuation spray,suspension Intranasal QDAY Qty: 0 ibuprofen 800 MG tablet 800 mg PO TIDP PRNQty: 0 albuterol sulfate 90 mcg/actuation HFA aerosol inhaler 2 puff inhalation Q4-6H PRN (Reason: shortness of breath or wheezing) Qty: 8.5 0RF azithromycin [Zithromax Z-Prabhu] 250 mg tablet See Rx Instructions .ROUTE .COMPLEX Qty: 6 0RF Rx Instructions: For 250 mg dose pack: take 500 mg today (day 1), then 250 mg for 4 days (days 2-5) Referrals: Sammie Gil PA-C [Primary Care Provider] - Stand Alone Forms: Patient Portal/API
--- NOTE | 2022-05-12 22:58 | DI.CT.S_ITS ---
PROCEDURE: CT ANGIO CHEST PE PROTOCOL INDICATIONS: sob and hypoxia TECHNIQUE: After the administration of intravenous contrast, 2 mm thick sections acquired from the pulmonary apices to the posterior costophrenic angles. 3-dimensional maximum intensity projection (MIP) coronal and sagittal reformats were then acquired through the thorax. For radiation dose reduction, the following was used: automated exposure control, adjustment of mA and/or kV according to patient size. COMPARISON: [facility], CT, CT CHEST ABD PEL W CON, 03/24/2022, 14:43. FINDINGS: Image quality: Excellent. Pulmonary arteries: Pulmonary arteries are normal in size, and demonstrate no intraluminal filling defects to suggest central pulmonary embolism. Evaluation of distal subsegmental pulmonary arteries limited by suboptimal contrast opacification. Lower Neck: No lymphadenopathy by size criteria. Thyroid: Visualized thyroid demonstrates no discrete nodules. Axillae: No lymphadenopathy by size criteria. Chest Wall: Unremarkable. Bones: Visualized osseous structures demonstrate no suspicious lesions. Lungs and Airways: There are new patchy irregular areas of ground-glass opacity and septal thickening demonstrated bilaterally predominantly within the upper lobes. Milder areas of indistinct ground-glass opacity are also redemonstrated within the lower lobes and right middle lobe, slightly increased from the prior study. The trachea and central airways are patent. There are a few scattered foci of mucous plugging with a lower lobe predominance. Pleura: No pneumothorax or pleural effusions. Heart: Heart size is normal. No pericardial effusion. Thoracic Vessels: The thoracic aorta is normal in size. Mediastinum and Kelly: No lymphadenopathy by size criteria. Esophagus: No wall thickening. No hiatal hernia. Abdomen: Visualized upper abdominal solid organs appear normal in the early arterial phase of enhancement. IMPRESSION: 1. No evidence of central pulmonary embolism, with evaluation of subsegmental pulmonary arteries limited by motion artifact. 2. Multiple new patchy bilateral ground-glass opacities with associated septal thickening the findings are nonspecific but likely represent multifocal pneumonia from atypical etiologies. The differential includes an inflammatory process such as hypersensitivity pneumonitis. Dictated by: Wilberto Schaefer M.D. on 05/13/2022 at 0:34 Approved by: Wilberto Schaefer M.D. on 05/13/2022 at 0:40
[2022-05-12 23:33] LABS: NT-proBNP (BNP-Adult 18+) < 11 pg/mL (<125)
[2022-05-13] VITALS (8 sets, daily range): BP systolic 135; BP diastolic 83; PULSE 79–110; RESP 18–22; TEMP 36.8; O2SAT 89–97
[2022-05-13] MEDS: ALBUTEROL/IPRATROPIUM 3 ML AMPUL INH
[2022-05-13] MEDS: methylPREDNISolone 125 MG/2 ML VIAL IV (00:20)
[2022-05-13 01:48] LABS: COVID-19 CEPHEID 4-PLEX PCR Negative (Negative); Influenza A - CEPHEID Flu A NEGATIVE (NEGATIVE); Influenza B - CEPHEID Flu B NEGATIVE (NEGATIVE); Respiratory Syncytial Virus Negative (Negative)
[2022-05-13] MEDS: ALBUTEROL 2.5 MG/3 ML NEB (ADULT) 5 MG INH (02:14)
== END 2022-05-13 02:54 | disposition home or self-care (01) ==
PROVIDERS: Emergency Provider Emergency Medicine; PCP Physician Assistant Medical
DX: J45.901 Unspecified asthma with (acute) exacerbation (principal); J18.9 Pneumonia, unspecified organism; R07.9 Chest pain, unspecified; R09.02 Hypoxemia; Z20.822 Contact with and (suspected) exposure to COVID-19
CPT/HCPCS: 0241U; 36415; 71045; 71275; 80053; 82550; 83690; 83735; 83880; 84484; 85025; 85379; 85610; 85730; 93005; 93010; 94640; 96374; 99284; J2930; J7613; Q9967

== ENCOUNTER → 2022-08-04 11:45 | Outpatient (CLI) | payer OTHER, SELFPAY ==
--- NOTE | 2022-08-04 11:48 | DI.RAD.S_ITS ---
PROCEDURE: XR LUMBAR SPINE 2-3V INDICATIONS: LEFT LOWER BACK PAIN TECHNIQUE: 3 views of the lumbar spine were acquired. COMPARISON: None. FINDINGS: Bones: There are 5 lumbar type vertebral bodies. Overall mild degenerative changes, with particular disc space height loss and facet arthropathy at L5-S1. There also osteophytes. Vertebral body heights are well maintained. No traumatic subluxation. Soft tissues: No suspicious calcifications. IMPRESSION: Mild degenerative changes, particularly at L5-S1. If there is high concern for further derangement, consider MRI evaluation. Dictated by: Gennaro Lyn M.D. on 08/04/2022 at 14:26 Approved by: Gennaro Lyn M.D. on 08/04/2022 at 14:26
== END ==
PROVIDERS: PCP Physician Assistant Medical; Referring Provider Psychiatry & Neurology Neurology; Visit Provider Psychiatry & Neurology Neurology
DX: M54.50 Low back pain, unspecified (principal); M79.605 Pain in left leg; M47.817 Spondylosis without myelopathy or radiculopathy, lumbosacral region
CPT/HCPCS: 72100

== ENCOUNTER → 2022-10-24 13:28 | Outpatient (CLI) | payer OTHER, SELFPAY | PROVIDERS: PCP Physician Assistant Medical; Referring Provider Internal Medicine Pulmonary Disease; Visit Provider Internal Medicine Pulmonary Disease | DX: J82.81 Chronic eosinophilic pneumonia (principal); Z87.891 Personal history of nicotine dependence | CPT/HCPCS: 94010; 94729 ==

== ENCOUNTER → 2022-12-15 12:08 | Outpatient (CLI) | payer OTHER, SELFPAY ==
--- NOTE | 2022-12-15 | DI.MRI.S_ITS ---
PROCEDURE: MR LUMBAR SPINE WO CON INDICATIONS: Radiculopathy, lumbar region TECHNIQUE: Noncontrast sagittal T1 spin echo and T2 fast echo, sagittal STIR, and T2 fast spin echo through the lumbar spine. In cases with scoliosis, additional coronal T2 fast spin echo may be performed. COMPARISON: [facility], MR, MR LUMBAR SPINE WITHOUT CONTRAST, 12/11/2020, 10:41. FINDINGS: Image quality: Excellent. Alignment and Curvature: There is normal bony alignment. Bone Marrow: Marrow is of normal overall signal. No acute vertebral body compression fractures. Spinal Cord: Conus medullaris terminates at the L1 level. Visualized cord demonstrates normal signal and size. Paraspinous Soft Tissues: No paravertebral masses. T12-L1: Normal appearance. L1-L2: Normal appearance. L2-L3: Normal appearance. L3-L4: Mild facet and ligamentum flavum hypertrophy. No canal stenosis or foraminal narrowing. Findings are unchanged from the study dated December 11, 2020. L4-L5: Broad-based disc bulge. Moderate facet ligamentum flavum hypertrophy. No canal stenosis. Moderate bilateral neural foraminal stenosis. Findings are unchanged. L5-S1: Mild disc desiccation and height loss. Broad-based disc bulge. Mild facet ligamentum flavum hypertrophy. No canal stenosis. Moderate bilateral foraminal stenosis. Findings are unchanged from the prior study. IMPRESSION: 1. Similar findings to the comparison MRI dated 12/11/20. No significant canal stenosis of the lumbar spine. 2. Unchanged moderate bilateral foraminal stenosis at L4-5 and L5-S1. Dictated by: Waleska Stephens M.D. on 12/15/2022 at 13:53 Approved by: Waleska Stephens M.D. on 12/15/2022 at 13:57
== END ==
PROVIDERS: PCP Physician Assistant Medical; Referring Provider Psychiatry & Neurology Neurology; Visit Provider Psychiatry & Neurology Neurology
DX: M54.16 Radiculopathy, lumbar region (principal); M48.061 Spinal stenosis, lumbar region without neurogenic claudication
CPT/HCPCS: 72148

== ENCOUNTER → 2023-05-05 13:49 | Outpatient (CLI) | payer OTHER, SELFPAY ==
--- NOTE | 2023-05-05 13:50 | DI.CT.S_ITS ---
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 1 mm lung window, 5 mm thick coronal and sagittal and 7 mm axial MIP reformats were then acquired. For radiation dose reduction, the following was used: automated exposure control, adjustment of mA and/or kV according to patient size. COMPARISON: [facility], CT, CT ANGIO CHEST PE PROTOCOL, 05/12/2022, 23:20. FINDINGS: Image quality: Diagnostic. Lower Neck: No enlarged lymph nodes. Thyroid: No thyroid nodules which require sonographic follow up, per consensus guidelines. Axillae: No enlarged lymph nodes. Chest Wall: Unremarkable. Bones: Unremarkable. Lungs and Pleura: No pneumothorax or pleural effusions. Probable atelectasis or scarring is present at the lingular base. The lungs are otherwise clear. Heart: Heart size is normal. No pericardial effusion. Thoracic Vessels: The aorta and pulmonary arteries demonstrate normal size. Mediastinum and Kelly: No enlarged lymph nodes. Esophagus: No wall thickening. No hiatal hernia. Upper Abdomen: The liver is diffusely hypodense. Visualized upper abdomen solid organs and bowel loops appear otherwise normal. IMPRESSION: 1. Probable lingular atelectasis versus scar. The lungs are otherwise clear. 2. Hepatic steatosis. Dictated by: Waleska Stephens M.D. on 05/05/2023 at 15:40 Approved by: Waleska Stephens M.D. on 05/05/2023 at 15:53
== END ==
LOC: CT 13:49
PROVIDERS: PCP Physician Assistant Medical; Referring Provider Internal Medicine; Visit Provider Internal Medicine
DX: D72.119 Hypereosinophilic syndrome [HES], unspecified (principal); K76.0 Fatty (change of) liver, not elsewhere classified
CPT/HCPCS: 71250

== ENCOUNTER → 2023-12-11 13:19 | Outpatient (CLI) | payer OTHER, SELFPAY ==
--- NOTE | 2023-12-11 13:22 | DI.CT.S_ITS ---
PROCEDURE: CT CHEST ABD PEL W CON INDICATIONS: HYPEREOSINOPHILIC SYND TECHNIQUE: After the administration of intravenous contrast, 5 mm thick sections acquired from the lung apices to the symphysis. 5 mm coronal and sagittal reformats were performed, with additional 7 mm MIP reformats through the lungs. For radiation dose reduction, the following was used: automated exposure control, adjustment of mA and/or kV according to patient size. COMPARISON: [facility], CT, CT CHEST ABD PEL W CON, 03/24/2022, 14:43. FINDINGS: Image quality: Diagnostic CHEST: Lower Neck: No enlarged lymph nodes. Thyroid: No thyroid nodules which require sonographic follow up, per consensus guidelines. Axillae: No enlarged lymph nodes. Chest Wall: Unremarkable. Lungs and Pleura: No pneumothorax or pleural effusions. Lingular atelectasis. Stable 2 decreased pulmonary nodules, for example 6 mm right lower lobe sub fissural nodule (5/161), previously 10 mm. No new or enlarging pulmonary nodules. Heart: Heart size is normal. No pericardial effusion. Thoracic Vessels: The aorta and pulmonary arteries demonstrate normal size. Mediastinum and Kelly: No enlarged lymph nodes. Esophagus: No wall thickening. No hiatal hernia. ABDOMEN: Liver: Decreased prominence of enhancing focus at the hepatic tip (2/129). Hepatic steatosis. Gallbladder: Absent Biliary ducts: No biliary dilation. Pancreas: No ductal dilation. Spleen: Size is within normal limits. Adrenal Glands: No adrenal nodules. Kidneys and Ureters: No hydronephrosis. No solid mass. No complex renal cystic lesion which requires follow up. Stomach and Bowel: Normal colonic caliber, without significant wall thickening. Normal caliber appendix. Peritoneum: No abnormal intraperitoneal fluid. No free air. Ventral Wall: No significant ventral hernia. Abdominal Nodes: No retroperitoneal or mesenteric adenopathy by size criteria. Vessels: Aorta and inferior vena cava are normal in size. PELVIS: Pelvic Organs: Unremarkable. Bladder: No bladder wall thickening, accounting for underdistention. Pelvic Nodes: No enlarged lymph nodes. Miscellaneous: No inguinal hernias are seen. Bones: No aggressive osseous abnormality. IMPRESSION: Hepatic steatosis. Decreased prominence of focal area of enhancement at the hepatic tip, possibly representing perfusion abnormalities. No new or enlarging pulmonary nodules. Approved by: Norma Florian M.D.,Ph.D. on 12/12/2023 at 4:12
== END ==
PROVIDERS: PCP Physician Assistant Medical; Referring Provider Internal Medicine; Visit Provider Internal Medicine
DX: D72.119 Hypereosinophilic syndrome [HES], unspecified (principal); K76.0 Fatty (change of) liver, not elsewhere classified; R91.8 Other nonspecific abnormal finding of lung field; Z90.49 Acquired absence of other specified parts of digestive tract
CPT/HCPCS: 71260; 74177; Q9967

== ENCOUNTER → 2024-01-22 12:34 | Outpatient (CLI) | payer OTHER, SELFPAY ==
--- NOTE | 2024-01-22 12:35 | DI.MRI.S_ITS ---
PROCEDURE: MR HEAD/BRAIN WO/W CON INDICATIONS: HYPEREOSINOPHILIC SYND, dysautonomia TECHNIQUE: Noncontrast axial T1 spin echo, axial T2 fast spin echo, sagittal and axial FLAIR, coronal T2 fast spin echo, axial gradient echo, axial diffusion and ADC through the brain. After the administration of contrast, axial and coronal and sagittal 3D VIBE or T1 spin echo with fat saturation through the brain. COMPARISON: None. FINDINGS: Image quality: Excellent. CSF Spaces: Basal cisterns are patent. No extra-axial fluid collections. Ventricles are normal in size and shape. Brain: No midline shift. No intracranial bleeds or masses. No abnormal intracranial enhancement. The brainstem appears normal. Diffusion-weighted images demonstrate no acute infarct. No chronic ischemic insults. Normal intravascular flow voids are present. Skull and face: Calvarial marrow is normal in signal. Orbits appear normal. Sinuses: Sinuses and mastoids appear clear. IMPRESSION: No imaging explanation is found for this patient's presenting symptoms. No masses or abnormal enhancement can be seen. Dictated by: Ahsan Mckeon M.D. on 01/22/2024 at 13:05 Approved by: Ahsan Mckeon M.D. on 01/22/2024 at 13:07
== END ==
LOC: MRI 12:34
PROVIDERS: PCP Physician Assistant Medical; Referring Provider Internal Medicine; Visit Provider Internal Medicine
DX: D72.119 Hypereosinophilic syndrome [HES], unspecified (principal); G90.1 Familial dysautonomia [Riley-Day]
CPT/HCPCS: 70553; A9579

== ENCOUNTER → 2024-03-10 10:40 | Outpatient (CLI) | payer OTHER, SELFPAY ==
--- NOTE | 2024-03-10 10:41 | DI.RAD.S_ITS ---
PROCEDURE: XR DEXA AXIAL SKELETON INDICATIONS: r/o osteoporosis COMPARISON: None. FINDINGS: Lumbar Spine: Bone mineral density 0.898 g/cm2, Z score -1.5. Left Hip: Bone mineral density 0.863 g/cm2, T score 0.2. Left Femoral Neck: Bone mineral density 1.027 g/cm2, T score 0.2. (T score greater or equal to -1.0 to: NORMAL) (T score from -1.1 to -2.4: OSTEOPENIA) (T score less than or equal to -2.5: OSTEOPOROSIS) IMPRESSION: Based on the Z-score of the lumbar spine, patient has low bone mineral density. Normal bone mineral density of the left hip. Follow-up guidelines as follows: Osteoporosis: Consider a repeat DEXA and Vertebral Fracture Assessment (VFA) exam in 2 years or sooner if medically necessary, to reassess this patient's status. Osteopenia: Consider a repeat DEXA in 2-3 years to reassess this patient's status, or if there is a new clinical indication. Normal: Consider a repeat DEXA in 5 years or sooner, or if there is a new clinical indication. All treatment decisions require clinical judgment and consideration of individual patient factors, including patient preferences, comorbidities, previous drug use, risk factors not captured in the FRAX model (e.g., frailty, falls, vitamin D deficiency, increased bone turnover, interval significant decline in bone density ) and possible under- or over-estimation of fracture risk by FRAX. In addition, the NOF Guide recommends that FDA-approved medical therapies be considered in postmenopausal women and men age >= 50 years with a: * Hip or vertebral (clinical or morphometric) fracture * T-score of <=-2.5 at the spine or hip * Ten-year fracture probability by FRAX of >= 3% for hip fracture or >=20% for major osteoporotic fracture. People with diagnosed cases of osteoporosis or at high risk for fracture should have regular bone mineral density tests. For patients eligible for Medicare, routine testing is allowed once every 2 years. The testing frequency can be increased to one year for patients who have rapidly progressing disease, those who are receiving or discontinuing medical therapy to restore bone mass, or have additional risk factors. Dictated by: Partha Lou M.D. on 03/11/2024 at 8:19 Approved by: Partha Lou M.D. on 03/11/2024 at 8:51
== END ==
LOC: RAD 10:40
PROVIDERS: PCP Physician Assistant Medical; Referring Provider Internal Medicine; Visit Provider Internal Medicine
DX: M85.88 Other specified disorders of bone density and structure, other site (principal); D72.119 Hypereosinophilic syndrome [HES], unspecified; Z79.52 Long term (current) use of systemic steroids
CPT/HCPCS: 77080

== ENCOUNTER → 2024-07-15 12:41 | Outpatient (CLI) | payer OTHER, SELFPAY ==
--- NOTE | 2024-07-15 12:43 | DI.CT.S_ITS ---
PROCEDURE: CT CHEST ABD PEL W CON INDICATIONS: HYPEREOSINOPHILIC SYNDROME TECHNIQUE: After the administration of intravenous contrast, 5 mm thick sections acquired from the lung apices to the symphysis. 5 mm coronal and sagittal reformats were performed, with additional 7 mm MIP reformats through the lungs. For radiation dose reduction, the following was used: automated exposure control, adjustment of mA and/or kV according to patient size. COMPARISON: [facility], CT, CT CHEST ABD PEL W CON, 12/11/2023, 14:30. FINDINGS: Image quality: Excellent. CHEST: Lower Neck: No enlarged lymph nodes. Thyroid: No thyroid nodules which require sonographic follow up, per consensus guidelines. Axillae: No enlarged lymph nodes. Chest Wall: Unremarkable. Lungs and Pleura: No pneumothorax or pleural effusions. No consolidation or suspicious nodules. Heart: Heart size is normal. No pericardial effusion. Thoracic Vessels: The aorta and pulmonary arteries demonstrate normal size. Mediastinum and Kelly: No enlarged lymph nodes. Esophagus: No wall thickening. No hiatal hernia. ABDOMEN: Liver: Diffuse fatty infiltration. No suspicious focal lesion seen. Gallbladder: No radiopaque gallstones or wall thickening. Biliary ducts: No biliary dilation. Pancreas: No ductal dilation. Spleen: Size is within normal limits. Adrenal Glands: No adrenal nodules. Kidneys and Ureters: No hydronephrosis. No solid mass. No complex renal cystic lesion which requires follow up. Stomach and Bowel: Normal colonic caliber, without significant wall thickening. Peritoneum: No abnormal intraperitoneal fluid. No free air. Ventral Wall: No significant ventral hernia. Abdominal Nodes: No retroperitoneal or mesenteric adenopathy by size criteria. Vessels: Aorta and inferior vena cava are normal in size. PELVIS: Pelvic Organs: Unremarkable. Bladder: No bladder wall thickening, accounting for underdistention. Pelvic Nodes: No enlarged lymph nodes. Miscellaneous: No inguinal hernias are seen. Bones: No aggressive osseous abnormality. IMPRESSION: No mass or acute abnormality seen. Dictated by: Blake Berger M.D. on 07/16/2024 at 16:42 Approved by: Blake Berger M.D. on 07/16/2024 at 16:48
== END ==
PROVIDERS: PCP Physician Assistant Medical; Referring Provider Internal Medicine; Visit Provider Internal Medicine
DX: D72.119 Hypereosinophilic syndrome [HES], unspecified (principal)
CPT/HCPCS: 71260; 74177; Q9967

== ENCOUNTER → 2024-12-20 13:24 | Outpatient (CLI) | payer OTHER, SELFPAY ==
--- NOTE | 2024-12-20 13:25 | DI.ECHO.S_ITS ---
[facility] : : [address] : : [place] : : [id number] : : Phone: [phone] Echocardiogram Report + + :Name: ELAINE MUNOZ Study Date: 12/20/2024 Height: 70 in : :Hospital ReadingLocation: Weight: 190 lb : : Gender: Male BSA: 2.0 m2 : :: 1980 Age: 44 yrs BP: 119/78 mmHg: :Reason For Study: DIZZINESS : :Ordering Physician: JAMIE, : :AQUILINO Performed By: Júnior Zhu : :Referring: AQUILINO AYALA : + + Interpretation Summary The left ventricle is normal in size. The ejection fraction is estimated to be 50-55%. There are no focal wall motion abnormalities. Diastolic parameters suggest probable normal left ventricular diastolic function and normal filling pressures. The right ventricle is normal in size and function. Pulmonary artery pressures cannot be estimated because of the lack of a measurable TR jet velocity but the IVC suggests a CVP of around 3 mmHg. The left atrial size is normal. There is no significant valvular heart disease. The aortic root is normal size. Procedure: A two-dimensional transthoracic echocardiogram with color flow and Doppler was performed. The study quality was technically good. There is no prior echocardiogram noted for this patient. The patient was in normal sinus rhythm during the exam. Left Ventricle: The left ventricle is normal in size. There is normal left ventricular wall thickness. There is no ventricular septal defect visualized. The ejection fraction is estimated to be 50-55%. There are no focal wall motion abnormalities. Diastolic parameters suggest probable normal left ventricular diastolic function and normal filling pressures. Right Ventricle: The right ventricle is normal in size and function. Atria: The left atrial size is normal. Right atrial size is normal. There is no Doppler evidence for an interatrial shunt. Mitral Valve: The mitral valve leaflets appear normal. There is no evidence of stenosis, fluttering, or prolapse. There is no mitral regurgitation noted. Aortic Valve: The aortic valve is trileaflet. The aortic valve opens well. No aortic regurgitation is present. Tricuspid Valve: The tricuspid valve leaflets are thin and pliable. No tricuspid regurgitation. Pulmonary artery pressures cannot be estimated because of the lack of a measurable TR jet velocity but the IVC suggests a CVP of around 3 mmHg. Pulmonic Valve: The pulmonic valve is not well seen, but is grossly normal. There is trace pulmonic regurgitation. There is no significant valvular heart disease. Great Vessels: The aortic root is normal size. The dimensions of the ascending aorta are normal. The pulmonary artery is normal size. The IVC is of normal diameter and collapses greater than 50% with a sniff. This suggests a low right atrial pressure of 3 mm Hg. Pericardium/ Pleura There is no pericardial effusion. There is no pleural effusion. MMode/2D Measurements & Calculations LVIDd: 4.9 cm LVOT diam: 2.3 cm LVIDs: 3.5 cm Ao root diam: 3.5 cm FS: 29.5 % asc Aorta Diam: 3.2 cm EPSS: 0.57 cm IVSd: 0.87 cm LVPWd: 0.79 cm LV donis. diameter/BSA (cm/m^2): 2.4 LV sys. diameter/BSA (cm/m^2): 1.7 LA A2 area: 20.0 cm2 RA long axis: 4.5 cm LA A4 area: 15.7 cm2 RA area: 12.2 cm2 LA length (vol): 5.2 cm RA vol: 27.9 ml LA vol: 51.8 ml RA : 13.7 ml/m2 LA vol index: 25.4 ml/m2 RVD1 (basal): 3.3 cm RVD2 (mid): 3.1 cm TAPSE: 2.4 cm Doppler Measurements & Calculations Ao V2 max: 120.2 cm/sec LVOT Max Tay: 93.7 cm/sec Ao V2 mean: 92.7 cm/sec LV V1 max P.5 mmHg Ao max P.8 mmHg LV V1 VTI: 21.1 cm Ao mean P.6 mmHg CANDACE(I,D): 3.4 cm2 Ao V2 VTI: 24.7 cm CANDACE(V,D): 3.1 cm2 sev ratio: 0.85 CANDACE indexed to BSA (cm^2/m^2): 1.7 MV E max tay: 52.2 cm/sec PA V2 max: 94.6 cm/sec MV A max tay: 45.8 cm/sec PA V2 mean: 75.0 cm/sec MV E/A: 1.1 PA mean P.4 mmHg Med Peak E' Tay: 9.8 cm/sec PA pr(Accel): 53.3 mmHg E/E' med: 5.3 Lat Peak E' Tay: 12.5 cm/sec E/E' lat: 4.2 E/e' average: 4.7 MV dec time: 0.17 sec SV(LVOT): 84.4 ml Reading Physician:02:37 PM
== END ==
PROVIDERS: PCP Physician Assistant Medical; Referring Provider Internal Medicine; Visit Provider Internal Medicine
DX: R42 Dizziness and giddiness (principal)
CPT/HCPCS: 93306